=== PATIENT | male | born 1950 | race Caucasian/White ===

== ENCOUNTER 2016-08-13 06:28 | Inpatient (IN) | payer MEDICARE, OTHER ==
[~2016-08-13] VITALS: Ht 181.6 cm; Wt 108.8 kg
--- NOTE | ~2016-08-13 | DS ---
PATIENT:ALINA MARTINEZ MOIRA :50 MEDICAL RECORD: [id number] DISCHARGE SUMMARY ADMISSION DATE: 08/13/16 DISCHARGE DATE: 08/18/16 DATE OF ADMISSIO: 08/13/2016 DATE OF DISCHARGE: 08/18/2016 ADMISSION DIAGNOSES: 1. Partial small-bowel obstruction versus ileus. 2. Posttraumatic stress disorder. 3. Hypertension. DISCHARGE DIAGNOSES: 1. Partial small-bowel obstruction versus ileus. 2. Posttraumatic stress disorder. 3. Hypertension. PROCEDURE: None. REPORT OF HOSPITALIZATION: The patient was admitted to the hospital through the ER with findings consistent with either a partial small-bowel obstruction or an ileus. The patient had no previous history of abdominal surgery. The patient reported some nausea without vomiting along with diarrhea. Once in the hospital, his diarrhea increased. He had a lot of abdominal distention and bloating. A serial KUB showed dilation of the small bowel consistent with an ileus. As we progressed through the hospitalization, the small bowel began taper down to normal caliber and eventually he was able to advance up to a full liquid diet. He was tolerating a full liquid diet with minimal nausea. His bowel movements continued to be loosened, but were starting to change color and becoming more normal per the patient. On the day of discharge, he was ambulating. His pain was under control and he was tolerating a full liquid diet. At that point, he had been afebrile throughout his hospitalization. All other workup had been negative including UA, urine culture and stool cultures. He was felt to be stable for discharge home at that point with a tentative diagnosis of viral gastroenteritis with ileus. DISCHARGE INSTRUCTIONS: Return to clinic or call if any questions or concerns, fevers, chills, nausea, vomiting or worsening abdominal pain. ACTIVITIES: As tolerated. DISCHARGE MEDICATIONS: Resume home medications with the inclusion of [place] 10. Followup is p.r.n. TRANSINT:[id number] Voice Confirmation ID: [id number] DOCUMENT ID: [id number] DISCHARGE SUMMARY REPORT [id number] ALINA MARTINEZ CHRISTIAN MD CC: IRWIN FAUST MD [id number] DICTATION DATE: 08/18/16 0956 FONDANT MACHINE OPERATOR: 08/18/16 1617 DIS IN 08/18/[address] [place] [address]
--- NOTE | ~2016-08-13 | PN ---
PATIENT:ALINA MARTINEZ MOIRA MEDICAL RECORD: [id number] LOCATION:D[facility] ADMISSION DATE: 08/13/16 PROGRESS NOTE DATE OF SERVICE: 08/15/2016 Progress Note Addendum CHIEF COMPLAINT: None. The patient has a distended tympanitic abdomen. He states he is not having any nausea. He states he is not having any pain. Nothing aggravates. Nothing alleviates. He is having bowel function. He is having diarrheal stools. This is a progress note addendum. For the typed portion of the progress note, which would include the past medical and surgical history, allergies, social history as well as current medications, please see the typed portion in the chart. REVIEW OF SYSTEMS: No fever, no chills. Review of systems is negative other than as is described above. PHYSICAL EXAMINATION: GENERAL: The patient does not appear acutely ill. He does not appear chronically ill. VITAL SIGNS: Reviewed. HEAD: External ears appear normal. EYES: Extraocular movements are intact. NECK: Trachea is midline. CHEST: No intercostal retractions. PULMONARY: Decreased breath sounds in bases. ABDOMEN: As described above. No peritonitis to tympany. I note no incarcerated ventral hernia. INTEGUMENT: No rash. EXTREMITIES: No peripheral cyanosis. PSYCHIATRIC: Normal affect. NEUROLOGIC: Nonfocal, no lethargy. The patient answers questions appropriately, moves all extremities well. BACK: No thoracic kyphosis. LYMPHATIC: No lymphangitic streaking of the exposed extremities. IMPRESSION: Ileus versus small-bowel obstruction. PLAN: The patient declines an NG tube. I will continue with n.p.o. status. TRANSINT:[id number] Voice Confirmation ID: [id number] DOCUMENT ID: [id number] PROGRESS NOTE [id number] ALINA MARTINEZ ROBERT MD CC: [id number] DICTATION DATE: 08/16/16 165 ROLL FORM OPERATOR: 08/17/16 0104 ADM IN [id number] [place] [address]
--- NOTE | ~2016-08-13 | PN ---
PATIENT:ALINA MARTINEZN MEDICAL RECORD: [id number] LOCATION:D.[id number] ADMISSION DATE: 08/13/16 PROGRESS NOTE DATE OF SERVICE: 08/16/2016 Addendum CHIEF COMPLAINT: None. HISTORY OF PRESENT ILLNESS: The patient is now having some abdominal pain. It is band-like across the upper abdomen and extends into the right upper quadrant. I have discussed this case personally with Dr. Orellana by phone, who is the patient's surgeon. Yesterday, I thought the patient was n.p.o., he was actually on a clear liquid diet. I will make him n.p.o. after midnight in case operative intervention is warranted. I will order some labs as well as get a KUB. He has minimal tenderness in the right upper quadrant. His abdomen is distended and tympanitic. There is no peritonitis to percussion. Nothing aggravates. Nothing alleviates. This is a progress note addendum. For the typed portion of the progress note including past medical and surgical history, allergies, social history as well as current medications, please see the chart. REVIEW OF SYSTEMS: No nausea, no vomiting, no fever, no chills. He is having bowel function. He is having diarrheal stools. PHYSICAL EXAMINATION: GENERAL: The patient does not appear acutely ill. He does not appear chronically ill. VITAL SIGNS: Reviewed. HEAD: External ears appear normal. EYES: Extraocular movements are intact. NECK: Trachea is midline. CHEST: No intercostal retractions. PULMONARY: Nonlabored, no stridor. Decreased breath sounds in bases. ABDOMEN: Distended, tympanitic in all quadrants. Nontender except in the right upper quadrant. PSYCHIATRIC: Normal affect. NEUROLOGIC: Nonfocal, no lethargy. The patient answers questions appropriately. Moves all extremities well. PSYCHIATRIC: Normal affect. BACK: No thoracic kyphosis. LYMPHATICS: No lymphangitic streaking of the exposed extremities. IMPRESSION: Ileus versus small-bowel obstruction. PLAN: As described above. N.p.o. after midnight. TRANSINT:[id number] Voice Confirmation ID: [id number] DOCUMENT ID: [id number] PROGRESS NOTE [id number] ALINA MARTINEZ ROBERT MD CC: [id number] DICTATION DATE: 08/16/161658 HOME AIDE: 08/17/16 0058 ADM IN [address] [id number]
[2016-08-13 07:25] LABS: BASOPHILS 0.2 % (0-2); EOSINOPHILS 0.7 % (0-7); HEMOGLOBIN 18.4 g/dL (13.5-17.5); IMMATURE GRANULOCYTES 0.5 % (0-5); LYMPHOCYTES 8.7 % (15-50); MCH 31.8 pg (26.0-34.0); MCHC 34.7 g/dL (31.0-37.0); MCV 91.5 fL (80.0-100.0); MEAN PLATELET VOLUME 12.4 fL (7.4-10.4); MONOCYTES 9.5 % (2-11); NEUTROPHILS 80.4 % (40-80); PLATELET COUNT 191 10x3/uL (130-400); RBC 5.79 10x6/uL (4.20-6.10); RDW 12.5 % (11.5-14.5); WBC 10.9 10x3/uL (4.8-10.8)
[2016-08-13 07:38] LABS: ALBUMIN 4.2 g/dL (3.4-5.0); BILIRUBIN - TOTAL 0.83 mg/dL (0.2-1.3); CALCIUM 9.2 mg/dL (8.5-10.1); CARBON DIOXIDE 23.1 mmol/L (21.0-32.0); CREATININE - SERUM 1.2 mg/dL (0.6-1.3); POTASSIUM - SERUM 4.1 mmol/L (3.5-5.1); PROTEIN - SERUM 8.6 g/dL (6.4-8.2)
[2016-08-13] MEDS ORDERED: COZAAR25 MG PO (12:10)
[2016-08-13] MEDS ORDERED: MINIPRESS 5 MG C5 MG PO (12:11)
[2016-08-13] MEDS ORDERED: LIPITOR20 MG PO (12:11)
[2016-08-13 14:23] VITALS: BP 120/82; BMI 32.8
[2016-08-13 14:35] LABS: APPEARANCE HAZY (CLEAR); BILIRUBIN NEGATIVE (NEGATIVE); COLOR DK YELLOW (YELLOW); GLUCOSE 50 mg/dL (NEGATIVE); KETONE NEGATIVE (NEGATIVE); LEUKOCYTE ESTERASE NEGATIVE (NEGATIVE); NITRITE NEGATIVE (NEGATIVE); PROTEIN TRACE mg/dL (NEGATIVE); UROBILINOGEN NORMAL (NORMAL)
[2016-08-13 14:36] LABS: RED CELLS - URINE 0-5 /hpf (0-5); WHITE CELLS - URINE 0-5 /hpf (0-5)
[2016-08-13 14:38] LABS: BACTERIA FEW /hpf (NONE SEEN); EPITHELIAL CELLS RARE /hpf (0-5)
[2016-08-13 14:40] LABS: GRANULAR CAST RARE /lpf (NONE SEEN); HYALINE CAST RARE /lpf (NONE SEEN)
[2016-08-13 16:18] VITALS: BP 132/73
--- NOTE | 2016-08-13 17:13 | NUR ---
Patient Name: ALINA MARTINEZ Admission Status: ER Accout number: [id number] Admission Date: 08-13-2016 : 1950 Admission Diagnosis: Attending: JESSY Current LOS: 1 Anticipated DC Date: 08-17-2016 Planned Disposition: Home Primary Insurance: MEDICARE A & B Discharge Planning Comments: CM MET WITH PATIENT REGARDING D/C NEEDS AND PLANS. PATIENT STATED HE LIVES WITH HIS AND SHE WILL DRIVE HIM HOME AT DISCHARGE. PATIENT STATED THERE ARE 5 STEPS W/RAILS TO ENTER HIS HOME AND NO STAIRS INSIDE. PATIENT STATED HE IS INDEPENDENT WITH HIS CARE AND HAS NO DME AT HOME. PATIENT STATED HIS PCP IS DR. FAUST AND PHARMACY IS [facility] OR [address] [place] [address] (DOES NOT REMEMBER WHICH). PATIENT STATED HE DOES NOT WANT HOME HEALTH AT THIS TIME. CM WILL CONTINUE TO FOLLOW PATIENT WITH D/C NEEDS AND PLANS. PCP DR. CHRISTIANNE OCHOA ON [facility] OR [address] [place] [address] KELSI () [phone] International Trade Compliance Manager: Katina Madrigal Is the patient Alert and Oriented? Yes 0 * How many steps to enter\exit or inside your home? 5 W/RAILS 0 * PCP DR. FAUST 0 * Pharmacy [facility] (NOT SURE WHICH ONE [facility] OR [address] 0 * Preadmission Environment Home with Family 0 * ADLs Independent 0 * Equipment None 0 * List name and contact numbers for known caregivers / representatives who currently or will assist patient after discharge: KELSI () [phone] 0 * Community resources currently utilized None 0 * Additional services required to return to the preadmission environment? Yes 0 * Can the patient safely return to the preadmission environment? Yes 0 * Has this patient been hospitalized within the prior 30 days at any hospital? No 0 Grand Total: 0
[2016-08-13 20:00] VITALS: BP 122/88
--- NOTE | 2016-08-13 22:00 | NUR ---
PT HAVING LIQUID STOOLS. ABDOMEN IS DISTENDED AND FIRM. BOWEL SOUNDS ARE HYPOACTIVE. NG TUBE TO INTERMITTENT SUCTION WITH MINIMAL OUTPUT. DENIES NAUSEA. PAIN CONTROLLED WITH HUMAN RESOURCE ADVISOR. NO NEEDS. WILL CONTINUE TO MONITOR.
[2016-08-14] VITALS (7 sets, daily range): BP systolic 120–156; BP diastolic 75–110; Ht 181.6 cm; Wt 108.8 kg
[2016-08-14 05:53] LABS: HEMATOCRIT 49.2 % (42.0-54.0); HEMOGLOBIN 16.6 g/dL (13.5-17.5); MCH 31.4 pg (26.0-34.0); MCHC 33.7 g/dL (31.0-37.0); MCV 93.2 fL (80.0-100.0); MEAN PLATELET VOLUME 12.3 fL (7.4-10.4); PLATELET COUNT 186 10x3/uL (130-400); RBC 5.28 10x6/uL (4.20-6.10)
[2016-08-14 06:10] LABS: WBC 7.1 10x3/uL (4.8-10.8)
[2016-08-14 06:32] LABS: CALCIUM 7.9 mg/dL (8.5-10.1); CARBON DIOXIDE 27.6 mmol/L (21.0-32.0); CREATININE - SERUM 1.4 mg/dL (0.6-1.3); POTASSIUM - SERUM 3.6 mmol/L (3.5-5.1)
[2016-08-14 06:52] LABS: LYMPHOCYTES 35 % (15-50); MONOCYTES 7 % (2-11); NEUTROPHILS 38 % (40-80); PLATELET ESTIMATE NORMAL
--- NOTE | 2016-08-14 08:30 | NUR ---
AWAKE AND ALERT. ORIENTED X 3. NO C/O AT THIS TIME. LUNGS ARE CLEAR BILATERALLY, NO COUGH NOTED. SKIN IS INTACT WITHOUT REDNESS. IV TO RIGHT AC PATENT WITHOUT REDNESS AT INSERTION SITE. NG TO LEFT NARE IS PATENT WITH DARK GREENISH DISCHARGE. DENIES NEEDS. DENIES PAIN. BOWEL SOUNDS PRESENT AND ACTIVE X4.
--- NOTE | 2016-08-14 10:30 | NUR ---
REPORTS NG TUBE "FELL OUT" WILL NOTIFY
--- NOTE | 2016-08-14 11:00 | NUR ---
DR. HERRERA HERE.
--- NOTE | 2016-08-14 13:01 | NUR ---
BP UP TO 156/101. GIVEN 5 MG LOPRESSOR SLOW IVP FOR SAME. WILL MONITOR.
--- NOTE | 2016-08-14 17:30 | NUR ---
ATE MOST OF CL SUPPER. NO C/O AT THIS TIME. REPORTS NO NAUSEA TODAY JUST NOT FEELING WELL. NO CHANGES NOTED
[2016-08-15 05:35] LABS: BASOPHILS 0.5 % (0-2); EOSINOPHILS 2.7 % (0-7); HEMATOCRIT 44.1 % (42.0-54.0); HEMOGLOBIN 14.8 g/dL (13.5-17.5); IMMATURE GRANULOCYTES 0.2 % (0-5); LYMPHOCYTES 22.2 % (15-50); MCH 30.8 pg (26.0-34.0); MCHC 33.6 g/dL (31.0-37.0); MCV 91.9 fL (80.0-100.0); MEAN PLATELET VOLUME 11.9 fL (7.4-10.4); MONOCYTES 22.9 % (2-11); NEUTROPHILS 51.5 % (40-80); PLATELET COUNT 166 10x3/uL (130-400); RDW 12.7 % (11.5-14.5); WBC 5.8 10x3/uL (4.8-10.8)
[2016-08-15 05:51] LABS: CARBON DIOXIDE 27.6 mmol/L (21.0-32.0); CHLORIDE - SERUM 103 mmol/L (98-107); GLUCOSE 105 mg/dL (74-106); POTASSIUM - SERUM 3.6 mmol/L (3.5-5.1); SODIUM 136 mmol/L (136-145); eGFR NON AFRICAN AMERICAN 90 mL/min (90-120)
[2016-08-15 05:58] LABS: CALC OSMOLALITY 274 mosm/kg (275-300); CREATININE - SERUM 0.9 mg/dL (0.6-1.3); UREA NITROGEN 22 mg/dL (7-18)
[2016-08-15 08:03] VITALS: BP 118/76
--- NOTE | 2016-08-15 08:18 | NUR ---
AWAKE AND ALERT. ORIENTED X3. C/O NOT FEELING WELL THIS AM. NO C/O NAUSEA BUT IS HAVING MULTIPLE BOUTS OF DIARRHEA. LUNGS ARE CLEAR BILATERALLY, NO COUGH NOTED. SKIN IS INTACT WITHOUT REDNESS. IV TO LEFT AC IS PATENT WITHOUT REDNESS AT INSERION SITE. DENIES NEEDS AT THIS TIME.
--- NOTE | 2016-08-15 11:00 | NUR ---
SITTING UP IN BED. VISITORS IN ROOM. DENIES NEEDS.
[2016-08-15 12:33] VITALS: BP 141/69
[2016-08-15 15:34] VITALS: BP 130/79
--- NOTE | 2016-08-15 19:02 | NUR ---
ATE ALMOST ALL OF SUPPER. NO CHANGES NOTED AT THIS TIME.
--- NOTE | 2016-08-15 19:50 | NUR ---
DANTE DOYLE ASSESSED PT AT THIS TIME
[2016-08-15 20:00] VITALS: BP 126/85
--- NOTE | 2016-08-15 21:58 | NUR ---
PT DID NOT HAVE ANY HS MEDS BUT WHEN CHECKED ON HE WAS HOT AND THE TEMP WAS CHANGED TO MAKE THE ROOM A LITTLE COOLER.
[2016-08-16] VITALS: BP 114/70
[2016-08-16 04:00] VITALS: BP 110/80
--- NOTE | 2016-08-16 07:30 | NUR ---
AWAKE AND ALERT. ORIENTED X3. NO C/O AT THIS TIME. LUNGS ARE CLEAR BILATERALLY, NO COUGH NOTED. SKIN IS INTACT WITHOUT REDNESS. IV TO LEFT FOREARM IS PATENT WITHOUT REDNESS AT INSERTION SITE. NO BM'S THIS AM. DENIES NEEDS.
[2016-08-16 07:57] VITALS: BP 134/82
--- NOTE | 2016-08-16 10:00 | NUR ---
UP TO SHOWER WITH SET UP ASSISTANCE. AMBULATED IN HALLWAY PER SELF AFTER SHOWER. NO C/O AT THIS TIME.
--- NOTE | 2016-08-16 12:15 | NUR ---
CLEAR LIQUID LUNCH TRAY SERVED. ATE ONLY THE JELLO.
[2016-08-16 12:41] VITALS: BP 149/87
--- NOTE | 2016-08-16 15:30 | NUR ---
RESTING QUIETLY IN BED WITH EYES CLOSED. DENIES NEEDS.
[2016-08-16 15:57] VITALS: BP 145/86
--- NOTE | 2016-08-16 19:25 | NUR ---
RECIEVED SHIFT REPORT. PT IS LYING IN BED. ALERT AND ORIENTED AND ABLE TO VERBALIZE NEEDS. IV IS PATENT AND FLUIDS ARE RUNNING PER ORDER. PT IS AMBULATORY BUT WAS INSTRUCTED TO CALL FOR ANY ASSISTANCE NEEDED. PT STATES PAIN IS 4/10 WITH STUDIO POTTER PUMP. NO NEEDS ARE VERBALIZED AT THIS TIME. WILL CONTINUE TO MONITOR. SIDE RAILS ARE UP X 2. BED IS IN LOWEST POSITION. CALL LIGHT IS WITHIN REACH.
[2016-08-16 20:00] VITALS: BP 147/90
--- NOTE | 2016-08-16 20:05 | NUR ---
SHIFT ASSESSMENT COMPLETED. PT STATUS REMAINS UNCHANGED FROM PREVIOUS. NO NEEDS ARE VOICED. WILL MONITOR. SIDE RAILS X 2. BED LOW. CALL LIGHT IN REACH.
[2016-08-17 04:00] VITALS: BP 144/92
[2016-08-17 06:05] LABS: BASOPHILS 0.3 % (0-2); EOSINOPHILS 2.4 % (0-7); HEMATOCRIT 37.7 % (42.0-54.0); HEMOGLOBIN 12.8 g/dL (13.5-17.5); IMMATURE GRANULOCYTES 0.9 % (0-5); LYMPHOCYTES 22.3 % (15-50); MCH 30.9 pg (26.0-34.0); MCV 91.1 fL (80.0-100.0); MEAN PLATELET VOLUME 11.1 fL (7.4-10.4); MONOCYTES 15.8 % (2-11); NEUTROPHILS 58.3 % (40-80); PLATELET COUNT 156 10x3/uL (130-400); RBC 4.14 10x6/uL (4.20-6.10); RDW 12.3 % (11.5-14.5)
[2016-08-17 06:44] LABS: ALBUMIN 2.6 g/dL (3.4-5.0); ALKALINE PHOSPHATASE 35 U/L (46-116); ALT (SGPT) 33 U/L (10-68); BILIRUBIN - TOTAL 0.46 mg/dL (0.2-1.3); CALC OSMOLALITY 274 mosm/kg (275-300); CALCIUM 7.5 mg/dL (8.5-10.1); CARBON DIOXIDE 27.1 mmol/L (21.0-32.0); CHLORIDE - SERUM 104 mmol/L (98-107); CREATININE - SERUM 0.8 mg/dL (0.6-1.3); GLUCOSE 75 mg/dL (74-106); MAGNESIUM - SERUM 1.8 mg/dL (1.8-2.4); PHOSPHOROUS 2.7 mg/dL (2.5-4.9); POTASSIUM - SERUM 3.1 mmol/L (3.5-5.1); PROTEIN - SERUM 5.8 g/dL (6.4-8.2); SODIUM 139 mmol/L (136-145); UREA NITROGEN 6 mg/dL (7-18); eGFR NON AFRICAN AMERICAN > 90 mL/min (90-120)
--- NOTE | 2016-08-17 07:35 | NUR ---
PATIENT BACK FROM [facility]. PATIENT REQUESTING SOMETHING TO DRINK, XR TECH BROUGHT PATIENT ICE WATER. PATIENT DENIES FURTHER NEEDS. ASKED PATIENT HOW HIS PAIN IS, HE STATED "NONE WITH THIS PAIN MEDICATION." RESPIRATIONS ARE EVEN AND UNLABORED. BED IN LOWEST POSITON, CALL LIGHT IN REACH. BED RAILS UP X'S 2. ENCOURAGED PATIENT TO AMBULATE IN THE HALLS, EDUCATED ON BENNIFITS OF WALKING. PATIENT VERBALIZED UNDERSTANDING. EDUCATED PATIENT ON USING INCENTIVE SPIROMETER. PATIENT VERBALIZED UNDERSTANDING AND DEMONSTRATED USE, BRINGING IT UP TO 3000ML SHARON.
[2016-08-17 07:54] VITALS: BP 141/84
[2016-08-17 11:26] VITALS: BP 131/82
[2016-08-17 15:41] VITALS: BP 150/96
--- NOTE | 2016-08-17 19:00 | NUR ---
PATIENT SUPINE IN BED WATCHING TV. HOB 30 DEGREES. AAOX4. RR EVEN AND UNLABORED. 0 S/S OF DISTRESS. DENIES PAIN AT THIS TIME. NO C/O N/V. IV TO LEFT FA PATENT WITH NO REDNESS OR SWELLING. SRX2. BED LOW. CALL LIGHT WITHIN REACH.
[2016-08-17 20:00] VITALS: BP 134/87
[2016-08-18] VITALS: BP 140/88
--- NOTE | 2016-08-18 02:54 | NUR ---
PATIENT SLEEPING WITH NO DISTRESS NOTED. CALL LIGHT WITHIN REACH.
[2016-08-18 08:07] VITALS: BP 159/101
--- NOTE | 2016-08-18 08:08 | NUR ---
PATIENT IS AWAKE, ALERT AND ORIENTED X'S 4. RESPIRATIONS ARE EVEN AND UNLABORED ON ROOM AIR. NO SIGNS OF DISTRESS NOTED. BED IN LOWEST POSITION, CALL LIGHT IN REACH. BED RAILS UP X'S 2. PATIENT DEMONSTRATING USING INCENTIVE SPIROMETER. PATIENT REQUESTED CUP OF COFFEE. BROUGHT PATIENT COFFEE PER REQUEST. PATIENT DENIES FURTHER NEEDS.
[2016-08-18] MEDS ORDERED: HYDROCODONE-APA1 TAB PO (09:49)
--- NOTE | 2016-08-18 10:26 | NUR ---
CM REASSESSMENT NOTE: PATIENT IS DISCHARGING HOME TODAY AND PATIENT STATED HE HAD NO NEEDS AND WOULD DRIVE HIMSELF HOME. 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 CM EXPLAINED HE WOULD HAVE TO BE OFF OF THE PROFESSOR OF VEGETABLE SCIENCE FOR 24HRS. BEFORE HE COULD DRIVE HIMSELF HOME. PATIENT WAS NOT HAPPY BUT STATED HE WOULD GET HIS TO COME AND PICK HIM UP TODAY AT DISCHARGE.
[2016-08-18 11:48] VITALS: BP 128/85
--- NOTE | 2016-08-18 11:58 | NUR ---
DISCHARGE INSTRUCTIONS COMPLETED WITH PATIENT. D/C IV WITH CATHETER INTACT. HYDROCODONE PERSCRIPTION GIVEN TO PATIENT, EDUCATED PATIENT ON HYDROCODONE. PATIENT DENIES QUESTIONS.
--- NOTE | 2016-08-18 12:20 | NUR ---
PATIENT LEFT VIA WHEELCHAIR.
== END 2016-08-18 12:40 | disposition home or self-care (01) | DRG 389 ==
LOC: D.ER 06:28 → D.MS 10:40 → OBSVTIME 10:41 → D.MS 16:06
PROVIDERS: Emergency Medicine; Surgery; ADMIT Surgery
PROC: 0D9670Z Drainage of Stomach with Drainage Device, Via Natural or Artificial Opening (ICD-10-PCS; principal; 2016-08-13)
DX: K56.7 Ileus, unspecified (principal); N17.9 Acute kidney failure, unspecified; K56.60 Unspecified intestinal obstruction; K52.9 Noninfective gastroenteritis and colitis, unspecified; K21.9 Gastro-esophageal reflux disease without esophagitis; F43.10 Post-traumatic stress disorder, unspecified; I10 Essential (primary) hypertension

== ENCOUNTER 2016-11-08 08:18 | Observation (INO) | payer MEDICARE, OTHER ==
[~2016-11-08] VITALS: Ht 181.6 cm; Wt 108.0 kg
[~2016-11-08 08:18] MED LIST: COZAAR25 MG PO; HYDROCODONE-APA1 TAB PO; LIPITOR20 MG PO; MINIPRESS 5 MG C5 MG PO
[2016-11-08 08:53] LABS: EOSINOPHILS 3.1 % (0-7); HEMATOCRIT 41.3 % (42.0-54.0); HEMOGLOBIN 14.1 g/dL (13.5-17.5); IMMATURE GRANULOCYTES 0.3 % (0-5); MCH 31.1 pg (26.0-34.0); MCHC 34.1 g/dL (31.0-37.0); MEAN PLATELET VOLUME 11.3 fL (7.4-10.4); MONOCYTES 8.4 % (2-11); NEUTROPHILS 54.2 % (40-80); PLATELET COUNT 166 10x3/uL (130-400); RBC 4.54 10x6/uL (4.20-6.10); RDW 12.4 % (11.5-14.5); WBC 6.1 10x3/uL (4.8-10.8)
[2016-11-08 09:13] LABS: APTT 26.4 SECONDS (22.8-39.4)
[2016-11-08 09:14] LABS: ALBUMIN 3.6 g/dL (3.4-5.0); ALKALINE PHOSPHATASE 72 U/L (46-116); ALT (SGPT) 25 U/L (10-68); BILIRUBIN - TOTAL 0.41 mg/dL (0.2-1.3); CALC OSMOLALITY 280 mosm/kg (275-300); CALCIUM 8.2 mg/dL (8.5-10.1); CARBON DIOXIDE 27.1 mmol/L (21.0-32.0); CHLORIDE - SERUM 105 mmol/L (98-107); CREATININE - SERUM 0.9 mg/dL (0.6-1.3); PROTEIN - SERUM 6.8 g/dL (6.4-8.2); SODIUM 139 mmol/L (136-145); UREA NITROGEN 16 mg/dL (7-18); eGFR NON AFRICAN AMERICAN 90 mL/min (90-120)
[2016-11-08 09:20] LABS: GLUCOSE 143 mg/dL (74-106)
--- NOTE | 2016-11-08 11:17 | NUR ---
RECIEVED PT AT THIS TIME FROM ER. ORIENTED PT TO ROOM AT THIS TIME, HISTORY OBTAINED AND ASSESSMENT DONE PER FLOWSHEET. BED IN LOW POSITION AND CALL LIGHT WITHIN REACH. WILL CONTINUE TO MONITOR.
[2016-11-08 11:42] LABS: BASOPHILS 0.5 % (0-2); EOSINOPHILS 1.3 % (0-7); HEMATOCRIT 39.8 % (42.0-54.0); HEMOGLOBIN 13.4 g/dL (13.5-17.5); IMMATURE GRANULOCYTES 0.3 % (0-5); LYMPHOCYTES 26.9 % (15-50); MCH 30.6 pg (26.0-34.0); MCHC 33.7 g/dL (31.0-37.0); MCV 90.9 fL (80.0-100.0); MEAN PLATELET VOLUME 11.3 fL (7.4-10.4); MONOCYTES 7.2 % (2-11); NEUTROPHILS 63.8 % (40-80); PLATELET COUNT 169 10x3/uL (130-400); RBC 4.38 10x6/uL (4.20-6.10); RDW 12.3 % (11.5-14.5); WBC 6.2 10x3/uL (4.8-10.8)
[2016-11-08 13:17] VITALS: BP 159/98
[2016-11-08 14:51] VITALS: BP 159/98; BMI 32.8
[2016-11-08 16:12] LABS: ALBUMIN 3.4 g/dL (3.4-5.0); ALKALINE PHOSPHATASE 60 U/L (46-116); ALT (SGPT) 22 U/L (10-68); BILIRUBIN - TOTAL 0.62 mg/dL (0.2-1.3); CALC OSMOLALITY 278 mosm/kg (275-300); CALCIUM 7.8 mg/dL (8.5-10.1); CARBON DIOXIDE 26.4 mmol/L (21.0-32.0); CHLORIDE - SERUM 106 mmol/L (98-107); CREATININE - SERUM 0.8 mg/dL (0.6-1.3); GLUCOSE 112 mg/dL (74-106); POTASSIUM - SERUM 4.2 mmol/L (3.5-5.1); PROTEIN - SERUM 6.4 g/dL (6.4-8.2); SODIUM 139 mmol/L (136-145); UREA NITROGEN 13 mg/dL (7-18); eGFR NON AFRICAN AMERICAN > 90 mL/min (90-120)
[2016-11-08 19:41] LABS: BASOPHILS 0.6 % (0-2); HEMATOCRIT 38.8 % (42.0-54.0); HEMOGLOBIN 12.8 g/dL (13.5-17.5); IMMATURE GRANULOCYTES 0.3 % (0-5); MCH 30.9 pg (26.0-34.0); MEAN PLATELET VOLUME 12.5 fL (7.4-10.4); MONOCYTES 7.9 % (2-11); NEUTROPHILS 60.2 % (40-80); RBC 4.14 10x6/uL (4.20-6.10); RDW 12.7 % (11.5-14.5); WBC 6.9 10x3/uL (4.8-10.8)
[2016-11-08 19:42] LABS: MCV 93.7 fL (80.0-100.0)
[2016-11-08 19:44] LABS: PLATELET COUNT 49 10x3/uL (130-400)
--- NOTE | 2016-11-08 19:45 | NUR ---
LAB REPORTED A PLT COUNT OF 49CL
[2016-11-08 20:00] VITALS: BP 128/80
[2016-11-08 20:05] LABS: PLATELET ESTIMATE DECREASED
[2016-11-08 22:59] LABS: BASOPHILS 0.6 % (0-2); EOSINOPHILS 3.5 % (0-7); HEMATOCRIT 36.1 % (42.0-54.0); HEMOGLOBIN 12.4 g/dL (13.5-17.5); IMMATURE GRANULOCYTES 0.3 % (0-5); LYMPHOCYTES 32.1 % (15-50); MCH 31.2 pg (26.0-34.0); MCHC 34.3 g/dL (31.0-37.0); MEAN PLATELET VOLUME 11.3 fL (7.4-10.4); MONOCYTES 9.1 % (2-11); NEUTROPHILS 54.4 % (40-80); RBC 3.98 10x6/uL (4.20-6.10); RDW 12.5 % (11.5-14.5); WBC 7.2 10x3/uL (4.8-10.8)
[2016-11-08 23:04] LABS: MCV 90.7 fL (80.0-100.0); PLATELET COUNT 162 10x3/uL (130-400)
[2016-11-09] VITALS: BP 122/84
--- NOTE | 2016-11-09 02:00 | NUR ---
PT IN BED WITH NO DISTRESS. RESPIRATIONS EVEN AND UNLABORED. SIDE RAILS X 2. BED IS LOW. CALL LIGHT IN REACH.
[2016-11-09 04:00] VITALS: BP 131/84
[2016-11-09 05:53] LABS: BASOPHILS 0.6 % (0-2); HEMOGLOBIN 12.6 g/dL (13.5-17.5); IMMATURE GRANULOCYTES 0.3 % (0-5); LYMPHOCYTES 30.7 % (15-50); MCHC 34.1 g/dL (31.0-37.0); MCV 90.9 fL (80.0-100.0); MEAN PLATELET VOLUME 11.7 fL (7.4-10.4); MONOCYTES 8.4 % (2-11); PLATELET COUNT 170 10x3/uL (130-400); RBC 4.07 10x6/uL (4.20-6.10); RDW 12.5 % (11.5-14.5); WBC 7.2 10x3/uL (4.8-10.8)
[2016-11-09 06:05] LABS: CALC OSMOLALITY 277 mosm/kg (275-300); CALCIUM 7.9 mg/dL (8.5-10.1); CARBON DIOXIDE 26.7 mmol/L (21.0-32.0); CHLORIDE - SERUM 105 mmol/L (98-107); CREATININE - SERUM 0.8 mg/dL (0.6-1.3); GLUCOSE 102 mg/dL (74-106); POTASSIUM - SERUM 3.8 mmol/L (3.5-5.1); SODIUM 139 mmol/L (136-145); UREA NITROGEN 12 mg/dL (7-18); eGFR NON AFRICAN AMERICAN > 90 mL/min (90-120)
--- NOTE | 2016-11-09 08:15 | NUR ---
ASSESSMENT COMPLETE. SL TO R AC. DENIES ANY NEEDS AT THIS TIME.
[2016-11-09 08:32] VITALS: BP 148/87
--- NOTE | 2016-11-09 09:00 | NUR ---
SCD'S APPLIED TO BILAT LEGS.
--- NOTE | 2016-11-09 10:00 | NUR ---
CALLED TO ROOM BY PATIENT. PATIENT HAD FORMED STOOL WITH SMALL AMOUNT OF BLOOD NOTED AROUND STOOL AND A SMALL CLOT NOTED ON TOLIET PAPER. DR PICKERING NOTED STOOL DURING ROUNDS.
--- NOTE | 2016-11-09 11:30 | NUR ---
AMBULATING IN HALLWAY WITH FAMILY. DENIES ANY NEEDS AT PRESENT.
[2016-11-09 12:44] VITALS: BP 164/81
[2016-11-09 13:36] VITALS: Ht 181.6 cm; Wt 108.0 kg
--- NOTE | 2016-11-09 15:00 | NUR ---
DENIES ANY NEEDS AT PRESENT.
[2016-11-09 16:15] VITALS: BP 130/86
--- NOTE | 2016-11-09 17:44 | NUR ---
NO CHANGES NOTED AT PRESENT.
[2016-11-09 19:00] VITALS: BP 117/52
--- NOTE | 2016-11-09 19:30 | NUR ---
AMBULATING IN HALLWAY WITH HIS . ASSESSMENT PER FLOWSHEET. DENIES NEEDS SALINE LOCK PATENT RT AC SITE CLEAR. DENIES NEEDS.
--- NOTE | 2016-11-09 21:00 | NUR ---
MEDS GIVEN PER MAR.
--- NOTE | 2016-11-10 | NUR ---
EYES CLOSED RESPIRATIONS WITH EASE AND UNLABORED.
--- NOTE | 2016-11-10 02:09 | NUR ---
RESTING QUIETLY DENIES NEEDS.
[2016-11-10 04:00] VITALS: BP 115/72
[2016-11-10 05:50] LABS: BASOPHILS 0.5 % (0-2); EOSINOPHILS 3.1 % (0-7); HEMATOCRIT 35.9 % (42.0-54.0); IMMATURE GRANULOCYTES 0.5 % (0-5); LYMPHOCYTES 32.2 % (15-50); MCH 30.6 pg (26.0-34.0); MCHC 33.4 g/dL (31.0-37.0); MCV 91.6 fL (80.0-100.0); MEAN PLATELET VOLUME 10.9 fL (7.4-10.4); MONOCYTES 8.3 % (2-11); NEUTROPHILS 55.4 % (40-80); PLATELET COUNT 151 10x3/uL (130-400); RBC 3.92 10x6/uL (4.20-6.10); RDW 12.5 % (11.5-14.5); WBC 5.5 10x3/uL (4.8-10.8)
[2016-11-10 06:05] LABS: CALC OSMOLALITY 277 mosm/kg (275-300); CALCIUM 7.9 mg/dL (8.5-10.1); CHLORIDE - SERUM 106 mmol/L (98-107); CREATININE - SERUM 0.8 mg/dL (0.6-1.3); GLUCOSE 107 mg/dL (74-106); POTASSIUM - SERUM 3.7 mmol/L (3.5-5.1); SODIUM 140 mmol/L (136-145); UREA NITROGEN 9 mg/dL (7-18); eGFR NON AFRICAN AMERICAN > 90 mL/min (90-120)
[2016-11-10 08:43] VITALS: BP 123/78
--- NOTE | 2016-11-10 08:45 | NUR ---
ASSESSMENT COMPLETE. SL TO R AC PATENT. UP AD CECELIA. DENIES ANY NEEDS AT THIS TIME.
--- NOTE | 2016-11-10 13:15 | NUR ---
SL REMOVED. CATHETER TIP INTACT. DISCHARGE TEACHING GIVEN TO PATIENT. VOICED UNDERSTANDING. WILL DC WHEN FAMILY ARRIVES.
--- NOTE | 2016-11-10 13:30 | NUR ---
DC'D HOME WITH FAMILY. ESCORTED TO VEHICLE BY VOLUNTEER VIA WC WITH BELONGINGS.
== END 2016-11-10 13:30 | disposition home or self-care (01) ==
LOC: D.ER 08:18 → D.MS 10:35 → OBSVTIME 10:35 → D.MS 10:35
PROVIDERS: Emergency Medicine; Internal Medicine Gastroenterology; ADMIT Family Medicine
DX: K57.91 Diverticulosis of intestine, part unspecified, without perforation or abscess with bleeding (principal); I10 Essential (primary) hypertension; F43.10 Post-traumatic stress disorder, unspecified; X58.XXXA Exposure to other specified factors, initial encounter; E78.5 Hyperlipidemia, unspecified; M19.90 Unspecified osteoarthritis, unspecified site; H91.92 Unspecified hearing loss, left ear

== ENCOUNTER → 2016-12-23 09:20 | Outpatient (CLI) | payer MEDICARE, OTHER ==
[2016-11-09 13:36] VITALS: BMI 32.7
[2016-12-23 09:38] LABS: EOSINOPHILS 3.4 % (0-7); HEMATOCRIT 42.8 % (42.0-54.0); HEMOGLOBIN 14.4 g/dL (13.5-17.5); IMMATURE GRANULOCYTES 0.2 % (0-5); MCHC 33.6 g/dL (31.0-37.0); MCV 89.2 fL (80.0-100.0); MONOCYTES 9.9 % (2-11); NEUTROPHILS 57.5 % (40-80); RDW 12.4 % (11.5-14.5); WBC 5.3 10x3/uL (4.8-10.8)
[2016-12-23 09:44] LABS: PLATELET COUNT 186 10x3/uL (130-400)
[2016-12-23 10:31] LABS: CALC OSMOLALITY 281 mosm/kg (275-300); CALCIUM 8.4 mg/dL (8.5-10.1); CARBON DIOXIDE 26.1 mmol/L (21.0-32.0); CHLORIDE - SERUM 104 mmol/L (98-107); CHOL - HDL RATIO 2.9 ratio (2.3-4.9); CHOLESTEROL, TOTAL 159 mg/dL (0-200); CREATININE - SERUM 0.9 mg/dL (0.6-1.3); GLUCOSE 107 mg/dL (74-106); HDL CHOLESTEROL 55 mg/dL (32-96); LDL CHOLESTEROL 92 mg/dL (0-100); LDL-HDL RATIO 1.7 ratio (1.5-3.5); POTASSIUM - SERUM 3.8 mmol/L (3.5-5.1); SODIUM 141 mmol/L (136-145); THYROID STIMULATING HORMONE 1.44 uIU/mL (0.36-3.74); TRIGLYCERIDE 61 mg/dL (30-200); UREA NITROGEN 14 mg/dL (7-18); eGFR NON AFRICAN AMERICAN 90 mL/min (90-120)
[2016-12-23 10:35] LABS: SCREENING PSA (YEARLY) 2.84 ng/mL (0.00-4.00)
== END | disposition home or self-care (01) ==
LOC: D.LAB 09:20
PROVIDERS: Family Medicine
DX: Z00.00 Encounter for general adult medical examination without abnormal findings (principal); Z12.5 Encounter for screening for malignant neoplasm of prostate; E78.5 Hyperlipidemia, unspecified; D64.9 Anemia, unspecified; K21.9 Gastro-esophageal reflux disease without esophagitis; K57.30 Diverticulosis of large intestine without perforation or abscess without bleeding

== ENCOUNTER → 2020-06-26 10:08 | Outpatient (CLI) | payer MEDICARE, OTHER ==
[2019-05-26 05:38] VITALS: BMI 33.3
[~2020-06-26 10:08] MED LIST changes: +COZAAR50 MG PO; +HYDROCODON-ACE1 EAC7 PO; +LINZESS145 MCG PO; +PERCOCET 10-321 EAC1 PO; +VISTARIL50 MG PO
[2020-06-26 10:46] LABS: BASOPHILS 0.8 % (0-2); HEMATOCRIT 44.4 % (42.0-54.0); HEMOGLOBIN 15.1 g/dL (13.5-17.5); IMMATURE GRANULOCYTES 0.3 % (0-5); LYMPHOCYTE ABS# 2.08 10x3/uL (1.32-3.57); LYMPHOCYTES 28.5 % (15-50); MCH 31.6 pg (26.0-34.0); MCV 92.9 fL (80.0-100.0); MEAN PLATELET VOLUME 10.2 fL (7.4-10.4); MONOCYTES 8.6 % (2-11); NEUTROPHIL ABS# 4.29 10x3/uL (1.78-5.38); NEUTROPHILS 58.8 % (40-80); PLATELET COUNT 177 10x3/uL (130-400); RBC 4.78 10x6/uL (4.20-6.10); RDW 12.8 % (11.5-14.5); WBC 7.3 10x3/uL (4.8-10.8)
[2020-06-26 11:07] LABS: ALBUMIN 3.9 g/dL (3.4-5.0); ALKALINE PHOSPHATASE 54 U/L (30-120); ALT (SGPT) 34 U/L (10-68); BILIRUBIN - TOTAL 0.66 mg/dL (0.2-1.3); CALC OSMOLALITY 277 mosm/kg (275-300); CALCIUM 8.5 mg/dL (8.5-10.1); CARBON DIOXIDE 27.5 mmol/L (21.0-32.0); CHLORIDE - SERUM 105 mmol/L (98-107); CHOLESTEROL, TOTAL 152 mg/dL (0-200); GLUCOSE 124 mg/dL (74-106); HDL CHOLESTEROL 51 mg/dL (32-96); LDL CHOLESTEROL 76 mg/dL (0-100); LDL-HDL RATIO 1.5 ratio (1.5-3.5); PROTEIN - SERUM 7.4 g/dL (6.4-8.2); SCREENING PSA (YEARLY) 2.59 ng/mL (0.00-4.00); SODIUM 138 mmol/L (136-145); THYROID STIMULATING HORMONE 1.61 uIU/mL (0.36-3.74); TRIGLYCERIDE 129 mg/dL (30-200); UREA NITROGEN 14 mg/dL (7-18); eGFR NON AFRICAN AMERICAN 79 mL/min (90-120)
== END | disposition home or self-care (01) ==
LOC: D.LAB 10:08
PROVIDERS: ATTEND Family Medicine
DX: Z00.00 Encounter for general adult medical examination without abnormal findings (principal); E78.49 Other hyperlipidemia; I10 Essential (primary) hypertension; K21.9 Gastro-esophageal reflux disease without esophagitis